=== PATIENT | male | born 1980 | race Caucasian/White ===

== ENCOUNTER 2022-09-16 20:25 | Emergency (ER) | payer OTHER ==
[2022-09-16 20:41] VITALS: BP 103/69; PULSE 77; RESP 16; TEMP 98.4; BMI 24.1
[2022-09-16] MEDS ORDERED: ceFAZolin SODIUM 1 GM VIAL ONE (21:11)
[2022-09-16] MEDS ORDERED: CEFAZOLIN 1 GM in DEXTROSE 5%-WATER - 50 ML IVPB ONE (21:13)
[2022-09-16] MEDS ORDERED: DIPHTH,PERTUSS(ACELL),TET 0.5 ML DISP.SYRIN IM ONE ×2 (21:14→21:22)
== END 2022-09-16 21:38 | disposition home or self-care (01) ==
LOC: FER 20:25
PROC: 3E03329 Introduction of Other Anti-infective into Peripheral Vein, Percutaneous Approach (ICD-10-PCS; principal; 2022-09-16)
PROC: 3E0234Z Introduction of Serum, Toxoid and Vaccine into Muscle, Percutaneous Approach (ICD-10-PCS; 2022-09-16)
DX: S61.411A Laceration without foreign body of right hand, initial encounter (principal); S66.821A Laceration of other specified muscles, fascia and tendons at wrist and hand level, right hand, initial encounter; W25.XXXA Contact with sharp glass, initial encounter
CPT/HCPCS: 90471; 90715; 96365; 99284-25